=== PATIENT | male | born 1970 | race African-American/Black ===

== ENCOUNTER 2024-10-27 16:54 | Emergency (ER) | payer MEDICAID ==
[~2024-10-27] VITALS: Ht 188 cm; Wt 110.0 kg
[2024-10-27 16:57] VITALS: O2SAT 100
[2024-10-27 22:30] VITALS: BP 136/85; PULSE 110; RESP 20; TEMP 36.8; O2SAT 100
== END 2024-10-27 22:45 | disposition home or self-care (01) ==
LOC: ER 16:54
DX: S82.142A Displaced bicondylar fracture of left tibia, initial encounter for closed fracture (principal); W01.0XXA Fall on same level from slipping, tripping and stumbling without subsequent striking against object, initial encounter; Y93.89 Activity, other specified; Y92.89 Other specified places as the place of occurrence of the external cause; Y99.8 Other external cause status
CPT/HCPCS: 73562; 99283; Z7610; L1830